=== PATIENT | female | born 2005 | race Caucasian/White ===

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

== ENCOUNTER 2025-05-13 11:06 | Day surgery (SDC) | payer MEDICAID, BC, SELFPAY ==
--- NOTE | 2025-05-07 16:29 | EXP.HP ---
History of Present Illness *Admission Date: 05/13/25 *History of present illness: Ms. Corrales is a 19-year-old female who is here for diagnostic EGD. The patient does have persistent nausea and iron deficiency. The nausea began in July 2024 and she is only had a single episode of vomiting. She reports no heartburn but does get some acid reflux that will awaken her at night occasionally. Her nausea usually occurs in the morning. She reports no abdominal pain, weight loss or dysphagia. She does have a tendency towards constipation. She reports chronic anemia with iron deficiency and is on oral iron. Her most recent hemoglobin hematocrit from 06/15/2024 were 8.6 and 29.2 with MCV of 65.0. The examination is deemed medically necessary for diagnostic EGD. The patient has been seen, interviewed and examined prior to the procedure by both myself and the anesthesia provider. [facility] Disclaimer: The information contained in this section may have been updated after the patient was seen, as this information can be updated by other users. Medical History Anemia Family History Father Diabetes Social History (Updated 05/13/25 @ 12:29 by Bunny Gibson CRNA) Smoking Status: Never smoker alcohol intake: never substance use type: denies use current occupational status: student Travel in the last 8 weeks?: None Have you lived/traveled outside US in past 30 days?: No Contact w/someone who lives/traveled outside US past 30 days?: No Exposure to someone with infectious disease in past 14 days?: No Do you have a fever (greater than 100.4 F or 38 C)?: No Have you tested positive for COVID-19?: No Exposed to someone with COVID-19 in past 14 days?: No Do you have a sore throat?: No Do you have a cough?: No Do you have any weakness?: No Are you experiencing any nausea/vomitting?: No Do you have any diarrhea?: No Are you experiencing any unusual bleeding?: No Do you have any muscle aches/pain?: No Do you have any abdominal pain?: No Are you experiencing loss of taste or smell?: No Other Medical History Have you received the Pneumonia Vaccine: No Review of Systems Review of Systems Review of systems (narrative): Negative *Cardiovascular Comments: Negative *Gastrointestinal Comments: Negative *Genitourinary Comments: Negative *Musculoskeletal Comments: Negative *Neurologic Comments: Negative Meds Home Medications and Allergies Home Medications ?Medication ?Instructions ?Recorded ?Confirmed ?Type ferrous sulfate 325 mg (65 mg 325 mg PO DAILY #90 tabs 12/19/24 05/08/25 Rx iron) tablet norethindrone 1 mg-ethinyl 1 tab PO DAILY 12/19/24 05/08/25 History estradiol 20 mcg (21)-iron 75 mg (7) tablet fluoxetine 10 mg capsule (Prozac) 10 mg PO DAILY 05/08/25 05/08/25 History New Prescriptions to Start Prescriptions: Allergies Allergy/AdvReac Type Severity Reaction Status Date / Time No Known Allergies Allergy Verified 05/13/25 11:46 Exam *Routine HEENT Exam Head: Present normocephalic Eye: Present EOMI and PERRL ENT: Present mucous membranes moist *Routine Neck Exam Neck: Present supple *Routine Respiratory Exam Respiratory: Present CTA bilaterally *Routine Cardiovascular Exam Cardiovascular: Present RRR *Routine Abdominal Exam Abdominal: Present soft and normoactive bowel sounds; Absent tenderness *Routine Rectal Exam Rectal:: deferred *Routine Genitalia Exam Genitalia:: deferred *Routine Extremities Exam Extremities: Absent cyanosis, clubbing or edema *Routine Skin Exam Skin: Present warm; Absent rash *Routine Neurological Exam Neurological: Present alert and oriented X3 Assessment and Plan *Assessment and plan (1) Nausea: Status: Acute Category: Medical Code(s): R11.0 - Nausea (2) Iron deficiency anemia: Status: Acute Category: Medical Code(s): D50.9 - Iron deficiency anemia, unspecified Plan A/P: 1. Nausea and iron deficiency anemia is the preprocedural diagnosis. The patient will be anesthetized/sedated using MAC sedation. The patient has been seen and examined. Cardiac and lung assessment prior to the examination is stable. Proceed with planned diagnostic EGD.
[2025-05-08 13:04] VITALS: BMI 37.3
--- NOTE | 2025-05-13 06:40 | P.PCN_ITS ---
[facility] Procedure Note Date: 05/13/25 Time: 13:18 Procedure Note:: Upper Endoscopy Procedure Report: Esophagogastroduodenoscopy with cold biopsies Endoscopost: Zenon Goodson II, MD Referring Physician: YONATAN Apodaca Date of Procedure: May 13, 2025 Equipment: Olympus GIF-1100 standard upper endoscope Sedation: MAC sedation Indications: Ms. Corrales is a 19-year-old female who is here for diagnostic EGD. The patient does have persistent nausea and iron deficiency. The nausea began in July 2024 and she is only had a single episode of vomiting. She reports no heartburn but does get some acid reflux that will awaken her at night occasionally. Her nausea usually occurs in the morning. She reports no abdominal pain, weight loss or dysphagia. She reports no gassiness or belching. She does have a tendency towards constipation. She reports chronic anemia with iron deficiency and is on oral iron. The patient has had iron deficiency since she was young. Her most recent hemoglobin hematocrit from 06/15/2024 were 8.6 and 29.2 with MCV of 65.0. The examination is deemed medically necessary for diagnostic EGD. Procedure: Prior to the procedure, a history and physical exam was performed, and patient's medications and allergies were reviewed. The risks, benefits and alternatives of the sedation and procedure were discussed with the patient. All questions were answered and informed consent was obtained. The patient was brought to the procedure room. Patient identification and proposed procedure were verified by the physician and the nurse. The patient was placed in a left lateral decubitus position and the scope was passed under direct vision. Throughout the procedure, the patient's blood pressure, pulse, and oxygen saturations were monitored continuously. The upper GI endoscopy was accomplished without difficulty. The patient tolerated the procedure well. Findings: The scope was passed directly into the upper esophagus and advanced to the third portion of the duodenum. The post bulbar duodenum, ampulla and duodenal bulb were normal with normal mucosa and conniventes. Cold biopsies were taken from the first portion of the duodenum and duodenal bulb to rule out celiac disease. There was no scalloping of the conniventes. The scope was withdrawn through a normal duodenal bulb and pylorus into the stomach. The antrum, body and fundus of the stomach were normal with normal appearing mucosa. There was no gastric atrophy. A cold biopsy was taken at the incisura to rule out H. pylori.. The scope was then withdrawn into the esophagus. There was no evidence of reflux esophagitis and the remainder of the esophageal mucosa was no rmal. Impression: 1. Normal upper endoscopy Plan: I will follow-up the biopsies. There was no clear source for the patient's nausea or iron deficiency. I am going to check iron levels today as w ell as Hemoccult testing. The patient did have imaging of the abdomen and pelvis in June 2024 that showed no acute intra-abdominal process with normal-appearing liver, gallbladder, pancreas, small bowel and colon.
[2025-05-13 11:46] VITALS: BP 159/69; PULSE 97; RESP 16; TEMP 36.2; O2SAT 99
[2025-05-13] MEDS: LACTATED RINGERS 1000ML 1,000 ML 50 ML IV (11:57)
[2025-05-13 12:01] LABS: Urine Pregnancy, HCG Qual. Negative (Negative)
--- NOTE | 2025-05-13 12:28 | P.PNANES_ITS ---
[facility] Disclaimer: The information contained in this section may have been updated after the patient was seen, as this information can be updated by other users. Medical History Anemia Family History Father Diabetes Social History Smoking Status: Never smoker alcohol intake: never substance use type: denies use current occupational status: student Travel in the last 8 weeks?: None [facility] Anesthesia Checklist Patient Identification Patient Identification: Arm Band Structural Data Admitted From: Home Planned Operative Procedure/s: EGD Consent for Planned Operative Procedure(s) Verified: Yes Verified Documents: Surgical Consent and History and Physical NPO Status Verified Time NPO: 00:00 Additional verifications Anesthesia Reactions: No Airway Assessment Mallampati Score:: Class II C-Spine Mobility Assessed: Yes TMJ Mobility Assessed: Yes Dentition: Good Dentition Neurological Assessment Level of Consciousness: Awake, Alert and Appropriate Anesthesia Plan Anesthesia Risk discussed: Yes Anesthesia Plan: Verified ASA Class: II Anesthesia Type: MAC
[2025-05-13 13:21] VITALS: BP 100/55; PULSE 70; RESP 16; TEMP 36.1; O2SAT 97
[2025-05-13 13:31] VITALS: BP 110/72; PULSE 65; RESP 18; TEMP 36.1; O2SAT 100
[2025-05-13 13:41] VITALS: BP 101/43; PULSE 68; RESP 18; TEMP 36.1; O2SAT 100
[2025-05-13 13:51] VITALS: BP 112/70; PULSE 71; RESP 18; TEMP 36.1; O2SAT 100
[2025-05-13 13:51] LABS: Hematocrit 26.5 % (37.0-47.0); Hemoglobin 7.3 g/dL (12.2-16.2); Immature Granulocytes % 0.3 %; Mean Corpuscular HGB Conc 27.5 g/dL (31.8-35.4); Mean Corpuscular Hemoglobin 18.4 pg (27.0-31.2); Mean Corpuscular Volume 66.9 fl (81-99); Nucleated Red Blood Cells % 0 %; Platelet Count 331 K/mm3 (142-424); Red Blood Count 3.96 M/mm3 (4.20-5.40); Red Cell Distribution Width-SD 42.4 fL; White Blood Count 8.8 K/mm3 (4.5-13.0)
[2025-05-13 14:33] LABS: Iron 40 ug/dL (37-170)
[2025-05-13 14:42] LABS: Total Iron Binding Capacity 402 ug/dL (265-497)
[2025-05-13 15:11] LABS: Ferritin 4.92 ng/ml (6.24-137)
[2025-05-13 15:26] LABS: Vitamin B12 617 pg/mL (239-931)
== END 2025-05-13 14:20 | disposition home or self-care (01) ==
PROVIDERS: PCP Nurse Practitioner Family; Visit Provider Internal Medicine Gastroenterology
PROC: 0DJ08ZZ Inspection of Upper Intestinal Tract, Via Natural or Artificial Opening Endoscopic (ICD-10-PCS; CPT 43239; principal; 2025-05-13 12:30)
DX: D50.9 Iron deficiency anemia, unspecified (principal)
CPT/HCPCS: 43239; 36415; 81025; 82607; 82728; 83540; 83550; 85025; J2003; J2704; J7120